=== PATIENT | female | born 1950 | race Caucasian/White ===

== ENCOUNTER 2025-04-14 00:37 | Inpatient (IN) | payer MEDICARE ==
[2025-04-14] VITALS (10 sets, daily range): BP systolic 126–164; BP diastolic 38–68; PULSE 78–81; RESP 18–22; TEMP 98.6–98.8; O2SAT 94–99
[~2025-04-14] VITALS: Ht 160 cm; Wt 123.0 kg
[2025-04-14] MEDS ORDERED: LANTUS SUBCUT (00:52)
[2025-04-14] MEDS ORDERED: INSU100C10 SQ (00:52)
[2025-04-14 02:58] LABS: MEAN PLATELET VOLUME 10.4 FL (7.4-10.4); RED CELL DISTRIBUTION WIDTH 15.1 % (11.5-14.5)
[2025-04-14 03:13] LABS: CREATININE 1.98 MG/DL (0.40-0.90); PRO BRAIN NATRIURETIC PEPTIDE 17144 PG/ML (0-125); TOTAL CARBON DIOXIDE 20.6 MMOL/L (24-32); eCRCL 21 ML/MIN; eGFR 25 ML/MIN
--- NOTE | 2025-04-14 04:31 | Physician Documentation ---
History of Present Illness ~ Chief Complaint: Chest Pain Stated Complaint: XFER Time Seen by MD: 03:26 OK to notify your PCP?: Yes Source: patient, RN/MD, EMS, RN notes reviewed, EMS notes reviewed, old records Mode of Arrival: EMS Exam Limitations: no limitations HPI This pleasant 74-year-old female was seen at a local hospital [facility]. The patient has been complaining of shortness of breath for about 3-4 days. Generally not feeling well. Patient did develop some chest pain as well including a raspy voice. Patient was concerned about possible bladder infection. Patient denies any sick contacts no fevers or chills. Just generalized weakness. She does have a history of asthma and COPD. She also has some chronic venous stasis and peripheral edema has not been taking her Lasix. Patient had a workup at the local hospital she was found to be chest pain-free but for her shortness of breath CT angiogram was obtained and was negative for pulmonary embolism. However during the workup the patient was found to have a BNP of 1300 her troponin was 0.17 which was elevated. Patient was given aspirin Lasix Zofran and also Rocephin. Patient reports that she has not been taking Lasix because it causes leg cramps. Patient was started on a heparin drip. And given aspirin and transferred to our facility. Past medical history diabetes type 2 cholecystitis edema peripheral, insulin dependent diabetes, hypertension, rectal bleeding, BMI 40+ severe obesity, retinopathy, proteinuria, UTIs, pulmonary artery pressure increased, COPD, anxiety, Past surgical history cholecystectomy varicose vein stripping, lap band surgery, laparoscopic adjustment gastric banding, removal of gallbladder. Social history denies tobacco alcohol or recreational drugs. Medication Reconciliation Allergies: Uncoded Allergies: ERYTHROMYCIN (Allergy, Intermediate, 04/14/25) Scheduled Insulin Glargine,Hum.rec.anlog* (Lantus*), 10 UNITS SUBCUT HS, (Reported) Miscellaneous Medications Insulin Lispro (Humalog), 1 UNITS SQ, (Reported) Review of Systems All Other Systems at this time: Reviewed and Negative Physical Exam Vital Signs: RN Vital Signs have been reviewed: Yes, Temperature: 98.0, Source: Oral, Heart Rate: 73, Respiratory Rate: 18, BP: 145/56, Pulse Oximetry: 99, Weight: 123.000 Oxygen Flow Rate: 2.0 Physical Exam General: The patient is well developed, well nourished, nontoxic appearing and is in mild acute distress. Short of breath Skin: Asher, warm and dry with no rashes. HEENT: Head was normocephalic and atraumatic. Eyes - pupils equal, round, reactive to light and accommodation. Extraocular movements were intact. Conjunctivae were nonicteric. Ears - bilateral tympanic membranes were normal. The mouth and oropharynx were clear with moist mucous membranes. There were no pharyngeal exudates or erythema. Neck: Supple and nontender. There was no jugular venous distention, lymphadenopathy, thyromegaly or masses. Chest: Clear to auscultation bilaterally without wheezes, rales or rhonchi. No accessory muscle use. No dullness to percussion. Rapid respiratory rate shortened shallow three word sentences Heart: Rate regular and rhythmic. S1, S2. No murmurs. Palpation of the chest wall was normal. Abdomen: Soft, nontender and nondistended. Positive bowel sounds. No guarding or rebound. Extremities: No cyanosis, clubbing 2+ pitting edema. Chronic venous stasis changes thick skin. The patient moves all extremities. Pulses were equal and symmetric. Neurologic: Motor sensory grossly intact. Psychologic: The patient was oriented to person, place and time. The patient d emonstrated appropriate judgement and insight. Progress Results/Orders Reviewed/noted all lab results: Yes Results/Orders Orders - ALEC FIGUEROA MD Monitor (04/14/25 00:45) Saline Lock (04/14/25 00:45) Oxygen (04/14/25 00:45) Electrocardiogram (04/14/25 00:45) Hs Troponin I W Calculations (04/14/25 03:45) Vital Signs 04/14/25 04/14/25 04/14/25 04/14/25 00:38 00:47 01:46 02:00 Temp 98.0 98.0 98.0 Pulse 74 74 75 Resp 22 16 18 B/P (MAP) 159/72 151/54 (86) 171/57 (95) Pulse Ox 98 97 99 99 O2 Delivery Nasal Cannula* O2 Flow Rate 2.0 2 0 2.0 FiO2 28 28 04/14/25 03:41 Temp 98.0 Pulse 73 Resp 18 B/P (MAP) 145/56 (85) Pulse Ox 99 O2 Flow Rate 2.0 FiO2 28 Laboratory Tests Test 04/14/25 01:30 04/14/25 02:15 CBC Comment Chemistry Comments White Blood Count 13.7 H Red Blood Count 3.19 L Hemoglobin 9.8 L Hematocrit 28.9 L Mean Corpuscular Volume 90.6 Mean Corpuscular Hemoglobin 30.7 Mean Corpuscular Hemoglobin Concent 33.9 Red Cell Distribution Width 15.1 H Platelet Count 110 L Mean Platelet Volume 10.4 Neutrophils (%) (Auto) 81.1 H Lymphocytes (%) (Auto) 10.7 L Monocytes (%) (Auto) 8.1 Eosinophils (%) (Auto) 0 Basophils (%) (Auto) 0.1 Neutrophils # (Auto) 11.1 H Lymphocytes # (Auto) 1.5 Monocytes # (Auto) 1.1 H Eosinophils # (Auto) 0.0 Basophils # (Auto) 0.0 Sodium Level 138 Potassium Level 3.5 Chloride Level 105 Carbon Dioxide Level 20.6 L Anion Gap 12 Blood Urea Nitrogen 58 H Creatinine 1.98 H Estimated GFR/1.73 m2 25 BUN/Creatinine Ratio 29.3 H Glucose Level 214 H Calcium Level 8.4 L Troponin I High Sensitivity 166 *H Pro-B-Type Natriuretic Peptide 64261 H Albumin 2.3 L Re-Evaluation Re-Evaluation : Re-Evaluation: Improved Progress Patient apparently did not receive heparin and was transferred without any anticoagulation. Patient's chest x-ray showed some borderline cardiomegaly no significant fluid overload. But there was prominence of the central interstitium. CT angiogram was negative for pulmonary embolism no aortic dissection. Patient's laboratory work was redrawn. Patient's laboratory work initially showed a troponin of 0.17 the 2nd troponin was reported as equivocal. Patient did receive the Lasix 40 mg. The patient's initial white count was 14.1 slight anemia of 10 and 31 115 platelets and 79.1 neutrophils. Patient did receive Rocephin for possible UTI. I do not see any urinalysis. As far as the patient's chemistry the patient has some prerenal dehydration possible chronic renal insufficiency with a BUN of 54 creatinine of 1.7 CO2 has a bit low at 16. Upon arrival patient was placed in bed three. Patient has received Lovenox for anticoagulation. Patient's laboratory work shows an elevated WBC of 13.7 hemoglobin 9 hematocrit 28 with 110 platelets left shift of 81 PMNs. Patient's troponin is 166. Patient's kidney functions are a bit worse however we are also diuresing the patient in may give additional Lasix with the BUN is 58 and the creatinine is 1[place] [address]. Echocardiogram has been ordered. Patient was then admitted to the hospitalist service for further workup and care. EKG/XRAY/CT/US/VASC/MRI EKG : Intepreting Monitor?: Yes Additional Comment 42 minutes after midnight. EKG shows good R-wave progression normal axis normal intervals nonspecific ST changes in the inferior leads two three AVF. QTC 409 Heart Score: Heart Score Response (Comments) Value History Moderate Suspicious 1 EKG Repolarization Disturb 1 Age >65 2 Risk Factors 1 or 2 risk factors 1 Troponin 1-2 x's Normal limit 1 Total 6 Medical Decision Making Additional info obtained from: old records Differential Dx:Considerations: Include: angina, aortic dissection, chest wall pain, cholelithiasis, CHF, costochondritis, esophageal reflux/spasm, gastritis, herpes zoster, myocardial infarction, pericarditis, pleuritis, pancreatitis, pneumonia, pneumothorax, pulmonary embolus, other Departure Admitted to Inpatient Unit: yes, to hospitalist Admission Level of Care: PCU with Tele Impression: Primary Impression: Non-ST elevation CO (NSTEMI) Additional Impressions: UTI (urinary tract infection) Qualified Codes: N30.00 - Acute cystitis without hematuria Acute on chronic heart failure Qualified Codes: I50.43 - Acute on chronic combined systolic (congestive) and diastolic (congestive) heart failure Dyspnea Qualified Codes: R06.09 - Other forms of dyspnea Condition: Guarded Referrals: NO PRIMARY CARE PROVIDER (PCP) Education Educated: Patient Educated regarding: diagnosis, need for follow up Critical Care Note Total Time (mins): 30 Critical Care Note The very real possibility of a deterioration of this patient's condition required the highest level of my preparedness for sudden, emergent intervention. I provided critical care services, which included medication orders, frequent reevaluations of the patient's condition and response to treatment, ordering and reviewing test results, and discussing the case with various consultants. Exc ludes time spent performing separately billable procedures. The critical care time associated with the care of the patient was. 30 minutes Signature Scribe Signature: None Attestation: The note accurately reflects work and decisions made by me.Alec Figueroa MD 04/14/25 04:55 ALEC FIGUEROA MD Apr 14, 2025 04:31
[2025-04-14] MEDS: enoxaparin 100mg/ml syringe SUBCUT ONE (04:58)
--- NOTE | 2025-04-14 05:29 | ELECTROCARDIOGRAPH REPORT ---
[facility] Test Date: 2025-04-14 Test Time: 00:42:35 Pat Name: ANNE-MARIE ADAME Department: EMERGENCY ROOM Room: ED 3 1 Gender: F Gate Keeper: : 1950 Requested By: ALEC FIGUEROA Order Number: [id number] Reading MD: Dr. Alec Figueroa Measurements Intervals [place] Rate: 78 P: 48 ND: 148 QRS: 69 QRSD: 90 T: -25 QT: 359 QTc: 409 Interpretive Statements Sinus rhythm Borderline repolarization abnormality Electronically Signed On 04-14-2025 5:36:[address] Alec Figueroa Please click the below link to view image of tracing.
--- NOTE | 2025-04-14 05:31 | RADIOLOGY REPORT ---
CHEST RADIOGRAPH Indication: CHEST PAIN Technique: Single frontal view of the chest was obtained COMPARISON: None FINDINGS: Lines and Tubes: None Lungs: Congestion. Pleura: No effusion. No pneumothorax. Cardiomediastinal contours: Unremarkable Bones: Unremarkable IMPRESSION: Increased interstital prominence. This may represent pulmonary vascular congestion and/or viral pneumonia. Clinical correlation advised.
[2025-04-14] MEDS ORDERED: potassium Cl 40MEQ/1/2NS 520ml 520 ML IV PRN (06:05)
[2025-04-14] MEDS ORDERED: morphine 4 MG/ML inj SYRINge IV PRN ×2 (06:05)
[2025-04-14] MEDS ORDERED: potassium Cl 20 mEq SR tablet PO PRN (06:05)
[2025-04-14] MEDS ORDERED: magnesium Cl slow-release 64mg tablet PO PRN (06:05)
[2025-04-14] MEDS ORDERED: docusate sod 100mg capsule PO PRN (06:05)
[2025-04-14] MEDS ORDERED: mag hydrox/Alum hydrox/simeth 30ml oral suspension PO PRN (06:05)
[2025-04-14] MEDS ORDERED: magnesium sulf-water 4G/100mL 100 ML IV PRN (06:05)
[2025-04-14] MEDS ORDERED: magnesium sulf-water 2g/50mL 50 ML IV PRN (06:05)
[2025-04-14] MEDS ORDERED: magnesium hydroxide 30ml (MOM) UD suspension PO PRN (06:05)
[2025-04-14] MEDS ORDERED: DEXTROSE 15 GM of carb/4 tabs (each vial/BOTTLE has 4 tablets) PO PRN ×2 (06:10)
[2025-04-14] MEDS ORDERED: glucagon, human recombinant 1mg kit SUBCUT PRN (06:10)
[2025-04-14] MEDS ORDERED: dextrose 50%-water 50ml dispensing syringe IV PRN ×2 (06:10)
--- NOTE | 2025-04-14 06:15 | HISTORY AND PHYSICAL-Residence ---
History & Physical Providers to CC Resident Creating Document: CARMELITA YA NILS ~ History of Present Illness Reason for Admit\Complaint: NSTEMI History of Present Illness A 74 years old female who was transferred from [facility] for four days' duration of progressive shortness of breaths, central chest pressure, nausea and vomiting found to have elevated troponin with a past medical history of chronic bilateral lymphedema legs, T2 DM on insulin, class four obesity BMI 48, HTN, s/p cholecystectomy, s/p laparoscopic gastric band ligation for obesity, and s/p varicose vein stripping surgery. She stated that she has been having symptoms that she never had before describing for a progressive acute shortness of breaths only on exertion. She does not have to use any oxygen at home, denies any association for coughing out of the blood and peripheral chest pain although she has a sedentary lifestyle because of her chronic bilateral severe lymphedema legs. She denies any prodromal flu-like symptoms except for the whitish sputum productive cough and unusually wheezing over the last four days. She denies any orthopnea PND and progressive bilateral swelling legs in addition of her chronic lymphedema. She also noticed there was something sitting over her central chest which was not radiating to her back neck and in her arms while she was getting out of the bed, off and on on exertion, and which were associated with the nausea and vomiting. In [facility], she was only given for ASA for elevated Trop and EKG changes which showed inferior leads ST depression and T inversions, and did not start any heparin for some reason on her way to here. In ER, pt was given therapeutic dosage of subcutaneous Lovenox 100 mg in ER one time dose. Allergies: Uncoded Allergies: ERYTHROMYCIN (Allergy, Intermediate, 04/14/25) Home Medications Home Medications Active Reported Humalog (Insulin Lispro) 100 Unit/Ml Cartridge 1 Units SQ Lantus* (Insulin Glargine) 100 Unit/1 Ml Vial 10 Units SUBCUT HS 30 Days Past Medical History Past Medical History chronic bilateral lymphedema legs, T2 DM on insulin, class four obesity BMI 48, HTN Allergic history: Patient stated that she has nausea vomiting terribly GI upset from azithromycin, she got the laryngeal spasm from any Manish inhibitors, and muscle cramping from the Lasix. Past Surgical History Surgical History Comment s/p cholecystectomy, s/p laparoscopic gastric band ligation for obesity, and s/p varicose vein stripping surgery. Past Social History Social History Comment She is currently living with the spouse at the [facility]. She stopped smoking and drinking alcohol since 1994 and denies using illicit drugs. He used a cane for the ambulation purposes. ROS All Other Systems: Reviewed and Negative ROS Constitutional: No fever, chills, dizziness, weakness, weight gain or loss Eyes: No pain, erythema, discharge, blurring of vision ENT: No sore throat, epistaxis, tinnitus Cardiovascular: No palpitations, syncope, lower extremity edema, paroxysmal nocturnal dyspnea Respiratory: No hemoptysis Gastrointestinal: Normal appetite. No nausea, vomiting, diarrhea, constipation, hematemesis, abdominal pain, bloating, melena or fresh blood Genitourinary: No frequency, urgency, nocturia, hematuria or dysuria Musculoskeletal: No arthralgias or myalgias Integumentary: No change in skin, hair, nails. No swelling, bruising, abrasions Neurologic: No headache, neck pain, numbness or tingling of the extremities, weakness Psychiatric: No delusions, depression, loss of interest in normal activity or change in sleep pattern, hallucinations, suicidal ideations Endocrine: No fatigue, weakness, polydipsia, polyuria, change in appetite, heat or cold intolerance, sweating, dry skin Hematological: No bleeding, petechiae, bruising Allergies: No asthma or urticaria Exam Vitals: Vital Signs Date Time Temp Pulse Resp B/P (MAP) Pulse Ox O2 Delivery O2 Flow Rate FiO2 04/14/25 05:32 98.0 69 18 141/48 (79) 100 2.0 28 04/14/25 00:47 Nasal Cannula* General: General: Well alert, well oriented, not confused, not agitated, not in acute distress, well cooperated during the physical. HEENT: HEENT: Conjunctive are pink, sclerae clear, no icterus, pupil is equal in both sides, reactive to light, no ear discharge, no pharyngeal erythema or an edema, mouth and lips are moist. Neck: Neck: Supple, no JVD, no lymphadenopathy and thyromegaly. Chest: Lungs:Equal air entry on both lungs, bilateral basal crackles Cardiovascular: Heart: S1-S2 regular sinus rhythm and, regular rate, no gallops, no rubs, no murmurs Abdomen: Abdomen: No visible peristalsis, Bowel sounds present on auscultation, soft, nontender, no guarding, no rigidity Extremities: Extremities: No obvious deformities, 2+ pitting edema bilaterally, capillary refill intact, able to wiggle toes both sides, peripheral pulsations are intact on both sides. and some degress of redness and warm to touch bilaterally Central Nervous System: [employer]CEAN EXPORT COORDINATOR: No focal neurological deficits, no motor and sensory weakness in all 4 extremities, could move all 4 extremities Musculoskeletal: Musculoskeletal: No joint swelling, deformities, inflammations, and no scoliosis and back tenderness Skin: Skin: No active skin lesions and rashes Diagnostic Data Last Recorded Lab Results: 04/14/2521404/14/25214 Advance Care Planning Advanced Care plannin - 30 Minutes Additional Plan A 74 years old female who was transferred from [facility] for four days' duration of progressive shortness of breaths, central chest pressure, nausea and vomiting found to have elevated troponin with a past medical history of chronic bilateral lymphedema legs, T2 DM on insulin, class four obesity BMI 48, HTN, s/p cholecystectomy, s/p laparoscopic gastric band ligation for obesity, and s/p varicose vein stripping surgery. # NSTEMI # acute hypoxic respiratory failure possibly from NSTEMI vs CHF exacerbation # Acute on chronic CHF exacerbation with [place] EF -Given history of typical central chest pressure with serially elevated troponin showed 166-[address] depression and T changes at inferior leads on EKG, patient was admitted for non-STEMI to rule out ACS. -chest x-ray showed Increased interstital prominence. This may represent pulmonary vascular congestion and/or viral pneumonia. Clinical correlation advised. Along with severely elevated troponin [id number] although the patient is class four obese. -patient was given one time dose of therapeutic Lovenox injection subcutaneous in ER Plan: -continue SQ Lovenox 1 milligram/kg q.12h -cardiology consultation and possible NM Lexiscan was recommended -continue p.o. aspirin 81 mg daily -postpone beta luis until Lexiscan was done -continue p.o. hydralazine 20 mg t.i.d. and isosorbide dinitrate 20 mg t.i.d. in the setting of severe allergic reaction to Manish inhibitors -continue IV Lasix 40 mg b.i.d. with the continuous monitoring for calcium potassium and magnesium to prevent unnecessary muscle cramps # Non specific neutrophilic leukocytosis # normochromic normocytic anemia # chronic bilateral leg lymphedema with superimposed Possible BIlateral leg cellulitis # Possible Asymptomatic UTI -in the setting of possible LUTI without having any symptoms and presence of possible bilateral cellulitis legs on the top of chronic bilateral leg lymphedema -patient was recently discharged from the hospital for bilateral leg cellulitis treated with antibiotics Plan: Continue IV vancomycin and Zosyn-renal adjusted dosage -blood culture and sensitivity with a lactic sepsis monitoring -to downgrade the antibiotics according to antibiogram -ordered FOBT # T2 DM # class four obesity, BMI 48 # s/p laparoscopic gastric band surgery # high blood pressure # Possible MADIHA on CKD 4 # apparent hypocalcemia-corrected calcium show 9.8 WNL -since she has laparoscopic Gastric band surgery, she should not be on any GLP-1 inhibitor -her usual HGB A1c was around 6.5 and RBS were around 100s, but trending up on the recent bilateral leg cellulitis -pending HGB A1c, lipid panel and a TSH -started hypo hyperglycemic protocol with SC glargine 25 units, lispro 6 units and low-dose sliding scale -NPO for now for the possible stress test in the morning, will need to educate for diabetic diet 75 g carbs control -pending urine lytes, and UA CODE STATUS: Full code DVT prophylaxis: SQ Lovenox Analgesia/sedation: IV morphine as needed Lines/tubes: PIV GI prophylaxis: Protonix Nutrition: NPO for now, plan for 75 g carb controlled diet Prognosis: Guarded Disposition: Continue medical management, possible cardiology consultation and NM Lexiscan, diabetes control and continue IV antibiotics, PT eval and DC plan. Resident MD attestation: Patient was seen, examined and discussed with attending MD, Dr. Beka YA MD Internal Medicine Resident, PGY3 [facility] Attending Physician Attestation Evaluation via HIPAA compliant A/V device. I discussed the case with the resident and I agree with the resident's documentation. 74-year-old woman with a history of diabetes mellitus 2, BMI > 48, chronic lymphedema and recent admission for bilateral lower extremity cellulitis now admitted with chest pain and dyspnea. Elevated troponin and EKG changes are suggestive of NSTEMI. The treatment plan includes aspirin, statin and therapeutic LMWH for ACS as well as vancomycin and piperacillin-tazobactam antimicrobial therapy for possible lower extremity cellulitis. Time spent 50 minutes. Date of Service: Apr 14, 2025 Billing Provider: CHANCE GARCIA MD,TIN, RES Apr 14, 2025 06:15 CHANCE GARCIA MD Apr 14, 2025 07:38
[2025-04-14] MEDS: INSULIN LISPRO 100 UNIT/ML INSULN.PEN MULTI-DOSE SQ SCH ×2 (07:00→09:00)
[2025-04-14 07:02] LABS: PHOSPHORUS 3.7 MG/DL (2.3-4.5)
[2025-04-14] MEDS: pantoprazole 40mg Tablet.DR PO SCH (07:30)
[2025-04-14] MEDS: K and/or MAG REPLACEMENT MC SCH (07:42)
[2025-04-14] MEDS ORDERED: CefTRIAXone/D5W-Rocephin 1gm 50 ML IV SCH (08:00)
[2025-04-14] MEDS ORDERED: [UNRECOGNIZED DRUG - CODE] PO (08:43)
[2025-04-14] MEDS ORDERED: [UNRECOGNIZED DRUG - SUPPLY] PO (08:43)
[2025-04-14] MEDS ORDERED: BACILLUS COAGULANS PO (08:43)
[2025-04-14] MEDS ORDERED: [UNRECOGNIZED DRUG - OTHER] PO (08:43)
[2025-04-14] MEDS: vancomycin/NS 1 GM ADD-VANTAGE 250 ML X 1 DOSE IV SCH (08:51)
[2025-04-14] MEDS ORDERED: SUPPORT PO (08:52)
[2025-04-14] MEDS ORDERED: FISH1CAP15 PO (08:52)
[2025-04-14] MEDS ORDERED: [UNRECOGNIZED DRUG - OTHER] PO (08:52)
[2025-04-14] MEDS ORDERED: VITA-321 PO (08:52)
[2025-04-14] MEDS ORDERED: [UNRECOGNIZED DRUG - OTHER] PO (09:00)
[2025-04-14] MEDS ORDERED: [UNRECOGNIZED DRUG - OTHER] PO (09:00)
[2025-04-14] MEDS ORDERED: [UNRECOGNIZED DRUG - OTHER] PO (09:00)
[2025-04-14] MEDS: ondansetron/PF 4mg/2ml inj IV PRN (09:46)
[2025-04-14] MEDS: piperacillin/tazo 3.375gm/50ml 50 ML IV SCH (10:04)
[2025-04-14] MEDS: aspirin 81mg, enteric-coated 1 TAB TABLET.DR PO SCH (10:25)
[2025-04-14] MEDS ORDERED: metoprolol tartrate 1mg/ml inj IV PRN (10:30)
[2025-04-14] MEDS ORDERED: aminophylline 250mg/10ml inj. IV PRN (10:30)
[2025-04-14 10:55] LABS: LEUKOCYTE ESTERASE ,URINE TRACE (Neg); NITRITES, URINE NEGATIVE (Neg); OCCULT BLOOD,URINE MODERATE (Neg)
[2025-04-14 11:02] LABS: UA COLLECTION TYPE NON-SPECIFIED
[2025-04-14 11:06] LABS: OSMOLALITY UA 477 MOSM/K (50-1400)
[2025-04-14 11:07] LABS: COARSE GRANULAR CAST 0-3 /LPF (NEGATIVE); SQUAMOUS EPITHELIAL CELL,UR FEW /LPF (FEW)
[2025-04-14 11:15] LABS: CREATININE,URINE RANDOM 123.0 MG/DL
[2025-04-14] MEDS ORDERED: [UNRECOGNIZED DRUG - OTHER] PO (11:18)
[2025-04-14] MEDS ORDERED: [UNRECOGNIZED DRUG - OTHER] PO (11:18)
[2025-04-14] MEDS: regadenoson 0.4mg/5ml syringe IV PRN (15:25)
--- NOTE | 2025-04-14 16:32 | RADIOLOGY REPORT ---
Reason for study/Clinical History: Reversible ischemia Comparison Study: None Myocardial Perfusion Study with SPECT Technique: The patient received an intravenous injection of 7 mCi of technetium-99m Sestamibi while at rest. After a short delay, SPECT tomographic images of the heart were obtained. The patient then went to the stress lab where they received an intravenous Lexiscan utilizing standard protocol. 30 mCi of technetium-99m Sestamibi was injected intravenously immediately after the start of the infusion. Gated SPECT tomographic images of the heart were acquired and processed. Findings: Rotating planar images show no significant attenuation artifact. The left ventricular size is within normal limits. Stress tomographic images demonstrate normal perfusion. Resting tomographic images demonstrate a similar pattern. Gated portion of the study shows normal wall motion and myocardial thickening. The left ventricular ejection fraction is 54 %. (normal greater than 50%) Impression: Normal left ventricular size, wall motion, and function, without evidence of infarction or of myocardium at ischemic risk. The left ventricular ejection fraction is 54 %.
--- NOTE | 2025-04-14 17:02 | CONSULTATION REPORT ---
History of Present Illness Providers to CC CC: DANIELLE SUAZO MD ~ Reason for Admit\Admit Dx: Cardiology consultation History of Present Illness Patient has past medical history significant for lymphedema, type 2 diabetes, obesity status post gastric band procedure, diabetic retinopathy. She presents for increased shortness for breath, chest pressure and nausea and vomiting. Symptoms onset was . She complains of orthopnea, dyspnea on exertion. Complaining of lower back pain. She states intermittent dizziness and her vision going brown intermittently. This is worse with movement. Reports recent illness with cellulitis treated at [facility]. Recent urinary tract infection as well. Allergies: Uncoded Allergies: ERYTHROMYCIN (Allergy, Intermediate, 04/14/25) Home Medications Home Medications Active Reported [nerve sync] 1 Cap PO DAILY [lipomax] 1-2 Drop PO DAILY [[place] Nerve] 3 Cap PO DAILY [gut drops] 1 Ml PO DAILY [activator plus] 1 Tab PO DAILY [glp-1 support] 1 Cap PO DAILY K2 Plus D3 Tablet (Vitamin D3/Vitamin K2 (Mk4)) 1,000 Unit-100 Mcg Tablet 2 Tab PO DAILY Fish Oil 1,200 Mg Fish Oil (Fish Oil/Dha/Epa) 1,200 Mg-144 Mg-216 Mg Capsule 1 Each PO DAILY [padmini burn with mct] 1 Cap PO DAILY [Durable BP] 1 Cap PO DAILY [bacillus coagulans 3] 1 Capsule PO DAILY [place] Bergamot (Bergamot Extract) 500 Mg Capsule 1 Cap PO DAILY Humalog (Insulin Lispro) 100 Unit/Ml Cartridge 1 Units SQ Lantus* (Insulin Glargine) 100 Unit/1 Ml Vial 10 Units SUBCUT HS 30 Days Past Medical History Medical History Comment Lymphedema Diabetes Obesity White coat hypertension Varicose veins treated by Dr. Bell Diabetic retinopathy Past Surgical History Surgical History Comment Gastric sleeve Cholecystectomy Varicose vein stripping Past Social History Social History Comment Denies alcohol, smoking, recreational drugs. Very sedentary in her daily life. States difficulty moving around secondary to her lymphedema. Physical Exam Last Vital Signs Recorded: RN Vital Signs have been reviewed: Yes, Temperature: 98.0, Source: Oral, Heart Rate: 80, Respiratory Rate: 18, BP: 131/46, Pulse Oximetry: 99, Weight: 123.000 Physical Exam General: Awake, alert, oriented. No apparent distress Respiratory: Lungs are clear and diminished to auscultation bilaterally. No respiratory distress. Chest: Normal shape and size. No accessory muscle use. Cardiovascular: Regular rate and rhythm. S1-S2. No murmur, gallop, rub. Extremities: ++ edema. Neurologic: Alert and oriented x4. Nonfocal Psychiatric: Normal mood and affect. Skin: Normal color. Warm and dry. Review of Systems ROS Review of systems negative except documented in HPI. Results Diagram Lab Result Diagram: 04/14/2521404/14/25214 Assessment/Plan Additional Plan Patient presents secondary to shortness for breath. The following is her problem list: NSTEMI. High sensitivity troponins 166, 176, 158. Stress test without reversible ischemia. --recommend risk factor modification. --recommend echocardiogram Congestive heart failure, likely diagnosis TTE pending. --continue with careful diuresis and monitoring of kidney function. Acute kidney injury versus chronic kidney disease --recommend monitoring closely Type 2 diabetes Hemoglobin A1c 7.2 --management per hospitalist Obesity with BMI 48 Recommend further evaluation with echocardiogram as stated above. Case discussed with Dr. Francisco Suazo who is in agreement with this plan. Supervising MD Supervising Physician: AJAY Simmons NP Apr 14, 2025 17:02
[2025-04-14] MEDS: enoxaparin 100mg/ml syringe SUBCUT SCH (20:08)
[2025-04-14] MEDS: insulin glargine (Lantus) pen - multi-dose SQ SCH (21:43)
[2025-04-15] VITALS (12 sets, daily range): BP systolic 132–156; BP diastolic 49–65; PULSE 75–81; RESP 14–25; TEMP 97.9–99.2; O2SAT 94–99
[2025-04-15 06:40] LABS: MEAN PLATELET VOLUME 9.9 FL (7.4-10.4); RED CELL DISTRIBUTION WIDTH 15.1 % (11.5-14.5)
[2025-04-15 06:49] LABS: CHOL/HDL RATIO 6.3 (0.00-4.99); CREATININE 2.53 MG/DL (0.40-0.90); LDL CHOLESTEROL 41 MG/DL (50-100); TOTAL CARBON DIOXIDE 22.3 MMOL/L (24-32); eCRCL 16 ML/MIN; eGFR 19 ML/MIN
[2025-04-15 09:19] LABS: BANDS% (MANUAL) 2.0 % (0-10); EOSINOPHILS % (MANUAL) 1.0 % (0-6); LYMPHOCYTES % (MANUAL) 13.0 % (21-51); MONOCYTES % (MANUAL) 9.0 % (2-12); NEUTROPHILS % (MANUAL) 75.0 % (42-75); PLATELET ESTIMATE DECREASED
[2025-04-15] MEDS: potassium Cl 20 mEq SR tablet PO PRN (09:24)
[2025-04-15] MEDS: ringers solution, lacted 1,000 ML IV SCH (11:21)
[2025-04-15] MEDS: ringers solution, lactated 500ml IV solution IV ONE ×2 (11:22→12:22)
--- NOTE | 2025-04-15 11:58 | PROGRESS NOTE ---
Progress Note Cardiology Providers to CC ~ Subjective Subjective Patient has continued shortness for breath. Able to lay flat. All questions answered. Objective Result Diagram: 04/15/2560904/15/25609 Objective General: Awake, alert, oriented. No apparent distress Respiratory: Lungs are clear and diminished to auscultation bilaterally. No respiratory distress. Chest: Normal shape and size. No accessory muscle use. Cardiovascular: Regular rate and rhythm. S1-S2. No murmur, gallop, rub. Extremities: ++ edema. Neurologic: Alert and oriented x4. Nonfocal Psychiatric: Normal mood and affect. Skin: Normal color. Warm and dry. Problem\Assessment\Plan Additional Plan Patient presents secondary to shortness for breath. The following is her problem list: NSTEMI. High sensitivity troponins 166, 176, 158. Stress test without reversible ischemia. --recommend risk factor modification. --recommend echocardiogram Congestive heart failure, likely diagnosis TTE pending. Apparently had a echocardiogram in [place] for a wellness on March 25 that showed a preserved LVEF, moderate MR/TR. --continue with careful diuresis and monitoring of kidney function. Acute kidney injury versus chronic kidney disease --recommend monitoring closely Type 2 diabetes Hemoglobin A1c 7.2 --management per hospitalist Obesity with BMI 48 Hypokalemia --recommend replacement per protocol Case discussed with Dr. Francisco Suazo who is in agreement with this plan. Supervising Physician: AJAY Simmons NP Apr 15, 2025 11:58
--- NOTE | 2025-04-15 12:00 | CONSULTATION REPORT - RESIDENT ---
Consult Providers to CC Resident Creating Document: BASSAM ENG RES History of Present Illness Reason for Admit\Complaint: MADIHA History of Present Illness This is a 74-year-old female with a history of type 2 diabetes mellitus, BMI 48.0, s/p gastric band ligation, bilateral lymphedema, history of MRSA cellulitis in the right leg, initially presented for progressive shortness of breadth and chest pressure for four days. She is on 2 L of oxygen with nasal cannula, does not use oxygen at baseline. She presented with elevated troponins with a possible NSTEMI, was started on therapeutic dose of Lovenox, cardiac stress test was done which was negative. For acute hypoxemic respiratory failure likely secondary to CHF exacerbation, patient was started on IV Lasix 40 b.i.d.. And for UTI and possible leg cellulitis, was initiated on vanc and Zosyn. Patient has been consulted for MADIHA, creatinine 1.98 at the time of admission, today it is 2.53. Patient's labs reviewed from 01/31 which showed a normal creatinine of 1.01 and a GFR of 55. Received three doses of 40 mg IV Lasix. She does not use diuretics at home. Denies using any NSAIDs. Patient appears very dry, chest x-ray shows findings of possible pneumonia. Creatinine today is 2.53, BUN 60, BUN/creatinine 23.7, urine sodium<15, feNa- 0.2% (urine collected while the patient is on Lasix.) Lasix has been discontinued, 500 mL bolus of LR was given and started on LR@ 100 mL/hour. Patient is also on vanc and Zosyn for leg cellulitis. Patient denies any history of chronic kidney disease. Does not follow up with any collection administrator. Allergies: Uncoded Allergies: ERYTHROMYCIN (Allergy, Intermediate, 04/14/25) Home Medications Home Medications Active Reported [nerve sync] 1 Cap PO DAILY [lipomax] 1-2 Drop PO DAILY [[place] Nerve] 3 Cap PO DAILY [gut drops] 1 Ml PO DAILY [activator plus] 1 Tab PO DAILY [glp-1 support] 1 Cap PO DAILY K2 Plus D3 Tablet (Vitamin D3/Vitamin K2 (Mk4)) 1,000 Unit-100 Mcg Tablet 2 Tab PO DAILY Fish Oil 1,200 Mg Fish Oil (Fish Oil/Dha/Epa) 1,200 Mg-144 Mg-216 Mg Capsule 1 Each PO DAILY [padmini burn with mct] 1 Cap PO DAILY [Durable BP] 1 Cap PO DAILY [bacillus coagulans 3] 1 Capsule PO DAILY [place] Bergamot (Bergamot Extract) 500 Mg Capsule 1 Cap PO DAILY Humalog (Insulin Lispro) 100 Unit/Ml Cartridge 1 Units SQ Lantus* (Insulin Glargine) 100 Unit/1 Ml Vial 10 Units SUBCUT HS 30 Days Past Medical History Past Medical History chronic bilateral lymphedema legs, T2 DM on insulin, class four obesity BMI 48, HTN History of MRSA cellulitis in the right leg. Past Surgical History Surgical History Comment s/p cholecystectomy, s/p laparoscopic gastric band ligation for obesity, and s/p varicose vein stripping surgery in 2021 Family History Family History: FH: cancer FH: multiple sclerosis Past Social History Social History Comment She is currently living with the spouse at the [facility]. She stopped smoking and drinking alcohol since 1994 and denies using illicit drugs. He used a cane for the ambulation purposes. Sedentary lifestyle. Exam Vitals: Vital Signs Date Time Temp Pulse Resp B/P (MAP) Pulse Ox O2 Delivery O2 Flow Rate FiO2 04/15/25 09:22 79 04/15/25 02:00 98.7 18 134/64 (87) 98 Nasal Cannula 2.0 04/14/25 20:00 28 General: General: Awake and Alert, no acute distress. HEENT: Conjunctiva pink, Sclera clear, Mucus Membranes dry Neck: Supple without masses and tenderness. Chest and Resp: Bilateral lung sounds appear to be clear. Did not access the back of her lungs. Cardiovascular system: Regular Rate and rhythm, normal S1 and S2 without murmur, rub or gallop. Abdomen: Soft, mild diffuse tenderness no organomegaly Extremities: Bilateral lymphedema. Right lower extremity appears to be warmer and slightly erythematous when compared to the left WAREHOUSE PULLER: Oriented x4. No motor or sensory deficits. Tone normal. Skin: Warm and Dry. Diagnostic Data Last Recorded Lab Results: 04/15/2560904/15/25609 Additional Plan Assessment This is a 74-year-old female with a history of type 2 diabetes mellitus, BMI 48.0, s/p gastric band ligation, bilateral lymphedema, history of MRSA cellulitis in the right leg, initially presented for progressive shortness of breadth and chest pressure for four days. She is on 2 L of oxygen with nasal cannula, does not use oxygen at baseline. She presented with elevated troponins with a possible NSTEMI, was started on therapeutic dose of Lovenox, cardiac stress test was done which was negative. For acute hypoxemic respiratory failure likely secondary to CHF exacerbation, patient was started on IV Lasix 40 b.i.d.. And for UTI and possible leg cellulitis, was initiated on vanc and Zosyn. Patient has been consulted for MADIHA, creatinine 1.98 at the time of admission, today it is 2.53. Patient's labs reviewed from 01/31 which showed a normal creatinine of 1.01 and a GFR of 55. Received three doses of 40 mg IV Lasix. She does not use diuretics at home. Denies using any NSAIDs. Patient appears very dry, chest x-ray shows findings of possible pneumonia. Creatinine today is 2.53, BUN 60, BUN/creatinine 23.7, urine sodium<15, feNa- 0.2% (urine collected while the patient is on Lasix.) Lasix has been discontinued, 500 mL bolus of LR was given and started on LR@ 100 mL/hour. Patient is also on vanc and Zosyn for leg cellulitis. Plan MADIHA likely prerenal MADIHA likely secondary to dehydration, diuretics, nephrotoxin medications creatinine 1.98 at the time of admission, today it is 2.53. Patient's labs reviewed from 01/31 which showed a normal creatinine of 1.01 and a GFR of 55. BUN/creatinine 23.7,urine sodium<15, feNa-0.2%, urine collected while the patient is on Lasix. Expecting FENA to be even lower. Patient was also nephrotoxin medications, vanc and Zosyn. Total urine output 550 mL. Patient has a history of diabetic retinopathy, so possibly has a diabetic nephropathy too. Plan 500 LR bolus followed by LR @ 100 mL/hour Encouraged oral fluid intake Was on vanc and zosyn, antibiotics changd to ceft and azithro Avoid nephrotoxin medications, avoid [place], morphine, also avoid JOSUE inhibitors Follow up with daily urine electrolytes Strict I&Os Renal diet Outpatient follow up with Dr. White. Electrolytes Hypokalemia Potassium 3.2 likely secondary to Lasix use. Do not replace potassium as the patient has a MADIHA. UTI Urine analysis positive for infection Pending urine cultures Possible lower extremity cellulitis History of MRSA cellulitis in the right leg Possible pneumonia Was on vanc and zosyn, antibiotics changd to ceft and azithro NSTEMI Cardiac stress test negative On aspirin Patient received therapeutic dose of Lovenox which was discontinued Acute on chronic CHF exacerbation Echo [place] ProB[place] 12270 Lasix discontinued. Anemia Hemoglobin 8.9 Recent iron studies on 01/01 showed iron 103, TIBC 303, % saturation 34, ferritin 53 Type 2 diabetes mellitus A1c 7.2 On Lantus 25 units, insulin protocol Class four obesity, BMI 48 History of gastric band ligation Hypertension Blood pressure in the normal range Bassam Eng M.D PGY2 Nephrology Resident. Date of Service: Apr 15, 2025 Billing Provider: MARK WHITE III, PRAVAHIKA, RES Apr 15, 2025 12:00
[2025-04-15] MEDS ORDERED: albuterol 2.5 MG/3 ML nebule NEB PRN (13:35)
[2025-04-15] MEDS: ipratropium/albuterol 3ml nebule NEB SCH (14:25)
[2025-04-15] MEDS: CefTRIAXone/D5W-Rocephin 1gm 50 ML IV ONE (15:21)
--- NOTE | 2025-04-15 15:53 | RADIOLOGY REPORT ---
CLINICAL INFORMATION: Shortness of breath. TECHNIQUE: Axial CT imaging of the chest was performed without IV contrast. Sagittal and coronal reformatted images were made, stored and reviewed. Evaluation is limited without IV contrast. One or more of the following dose reduction techniques were used: Automated exposure control. Adjustment of mA and/or kV according to patient size. CTDIvol = 18.82 mGy DLP = 666.61 mGy-cm COMPARISON: None FINDINGS: Aorta: No aneurysm. Moderate atherosclerotic calcification. Prominent fluid in the superior aortic pericardial recess adjacent to the ascending aorta. Cardiac: Heart size is within normal limits. Dense coronary artery calcification and/or stents. Mediastinum/chapin: No mass or adenopathy. Lungs: Scattered areas of subsegmental atelectasis. No focal consolidation. No pneumothorax or pleural effusion. Mild interlobular septal thickening, may be seen with interstitial pulmonary edema in the appropriate clinical setting. Pulmonary arteries: Dilated main pulmonary artery measuring up to 3.5 cm, may be seen with pulmonary arterial hypertension in the appropriate clinical setting. Chest wall: No mass or other abnormality. Upper abdomen: Hepatic steatosis. Gastric band in place. No definite evidence for slippage of the gastric band. Small hiatal hernia. Bones: No fracture or suspicious intraosseous lesions. IMPRESSION: 1. No focal consolidation, pneumothorax, or pleural effusion. 2. Mild areas of interlobular septal thickening, may be seen with interstitial pulmonary edema in the appropriate clinical setting. 3. Dilated main pulmonary artery, may be seen with pulmonary arterial hypertension. 4. Additional findings as described above.
[2025-04-15] MEDS: azithromycin/NS 500mg/250ml 250 ML IV ONE (16:27)
--- NOTE | 2025-04-15 17:40 | PROGRESS NOTE- Residence ---
Progress Note - Resident Providers to CC Resident Creating Document: JESSIE WOODSON RES CC: LARRY WEINSTEIN MD ~ Antibiotic Timeout Antibiotic Ordered?: Yes Subjective Patient was seen and examined at bedside with her by her side. We spent 30 minutes explaining the patient about her stress test, her diagnosis and our current treatment plan for the patient. Patient stated that she continues to have mild fatigue and shortness of breath Objective Vital Signs Date Time Temp Pulse Resp B/P (MAP) Pulse Ox O2 Delivery O2 Flow Rate FiO2 04/15/25 16:27 80 04/15/25 14:31 16 Nasal Cannula 3.0 04/15/25 14:26 97 32 04/15/25 02:00 98.7 134/64 (87) Result Diagram: 04/15/25 0610 04/15/25 0610 General: Awake, oriented to person, place and time HEENT: Conjunctive are pink, sclerae clear, no icterus, pupil is equal in both sides, reactive to light, no ear discharge, no pharyngeal erythema or an edema. Neck: Supple, no JVD, no lymphadenopathy and thyromegaly. Chest: Equal air entry on both lungs, decreased breath sounds noted on bilateral basilar lungs. Cardiovascular: S1-S2 regular sinus rhythm and, regular rate, no gallops, no rubs, no murmurs Abdomen: No visible peristalsis, Bowel sounds present on auscultation, soft, no tenderness, no guarding, no rigidity Extremities: Bilateral lymphedema plus one chronic bilateral pitting edema, mild erythematous right lower extremity compared to left capillary refill intact, peripheral pulsations are intact on both sides Central Nervous System: No focal neurological deficits, no motor or sensory weakness in all 4 extremities, could move all 4 extremities, 2+ deep tendon reflexes, negative Babinski. Musculoskeletal: No joint swelling, deformities, inflammations, and no scoliosis and back tenderness Skin: Warm and dry. Dry oral mucosa. Advance Care Planning Advanced Care plannin - 30 Minutes Plan Plan NSTEMI type 2 Acute hypoxic respiratory failure possibly from NSTEMI vs CHF exacerbation versus possible pneumonia(possibly community-acquired Gram-negative and Gram- positive pneumonia) Acute on chronic CHF exacerbation with preserved ejection fraction of 70-75% Pulmonary hypertension Patient presented with history of chest pressure, no chest pain , orthopnea or PND Elevated troponins of 160 to [address] with [address] segment depression and T changes on EKG Severely elevated probnp [id number] and three troponins downtrended 166,176,158 patient is also obese with a BMI of 48 kg/m2 Investigation Officer team was consulted and patient underwent Lexiscan without reversible ischemia Cardiology recommended medical management at this point Echocardiogram reported EF of 70-75%; RVSP is estimated at [address] chest reported:Mild areas of interlobular septal thickening, may be seen with interstitial pulmonary edema in the appropriate clinical setting. Dilated main pulmonary artery, may be seen with pulmonary arterial hypertension. On physical examination: Patient continues to have shortness of breath, no wheezing or crackles were heard Plan: Continue aspirin 81 mg Continue nitro sublingual 0.4 mg p.r.n. Continue lactated ringer at 100 mL/hour as patient does appear dry Discontinued Lasix in view of patient's worsening kidney function We recommended steroids with the patient, however patient and her declined Initiated the patient on albuterol 2.5 mg q.2h p.r.n., DuoNebs q.4h scheduled Possible sepsis 2/2 Urinary tract infection Pneumonia(possible community-acquired pneumonia-positive Gram-negative) Possible bilateral lower extremity cellulitis History of MRSA cellulitis in the right leg Patient's leukocyte elevated at 14, procalcitonin elevated at 0.9 Patient's urinalysis was positive for leukocyte esterase and WBC Patient was initially on vancomycin and Zosyn, changed patient's antibiotics to ceftriaxone azithromycin in view of her worsening kidney function MADIHA likely prerenal possibly due to vasomotor nephropathy MADIHA likely secondary to dehydration, diuretics, nephrotoxin medications Creatinine 1.98 at the time of admission, today it is 2.53. Patient's labs reviewed from 01/31 which showed a normal creatinine of 1.01 and a GFR of 55. BUN/creatinine 23.7,urine sodium<15, feNa-0.2%, urine collected while the patient is on Lasix. Expecting FENA to be even lower. Patient was also nephrotoxic medications, vanc and Zosyn. Total urine output 550 mL. Patient has a history of diabetic retinopathy, so possibly has a diabetic nephropathy too. Nephrology team was consulted and recommended Plan 500 LR bolus followed by LR @ 100 mL/hour Encouraged oral fluid intake Closely monitor patient's creatinine Follow up with daily urine electrolytes Strict I&Os Normocytic normochromic anemia likely cause anemia of chronic disease Hemoglobin 8.9 Iron 103, TIBC 303, % saturation 34, ferritin 53 Initiated the patient on centrum multivitamin Type 2 diabetes mellitus A1c 7.2 On Lantus 25 units, insulin protocol Class four obesity, BMI 48 History of gastric band ligation Code Status: Full code DVT Prophylaxis: Lovenox Lines/Tubes: PIV Gi Prophylaxis: None Nutrition: Renal diet PT:yes Prognosis: Guarded Disposition: We will continue to monitor the patient. Nephrology team is on board. Jessie Woodson MD Internal medicine resident,PGY-1 Date of Service: Apr 15, 2025 Billing Provider: LARRY WEINSTEIN MD Common Visit Codes: 11932-[id number] INP/OBS CARE(HIGH) JESSIE WOODSON, RES Apr 15, 2025 17:40 LARRY WEINSTEIN MD Apr 20, 2025 16:34
--- NOTE | 2025-04-15 18:37 | CARDIOLOGY REPORT ---
APPROVED REPORT EXAM: Limited 2D, Doppler, and color-flow Echocardiogram. Patient Location: [address] Blood Pressure: 134/64 mmHg Heart Rate: 78 bpm Rhythm: SINUS Indications ABNORMAL EKG ELEVATED PROBNP (89173) HS TROPONIN 166, 176 SHORTNESS OF BREATH CHEST PAIN Scaffold Erector: Junito Suazo MD Previous echo: 03/25/25 [facility] (EF 65-70%, mild MR, mild LAE, trace AI, mild to mod TR, PHTN, no significant PE) 2D Dimensions IVSd 1.3 (0.7-1.1cm) LVDd 4.5 cm PWd 0.9 (0.7-1.1cm) IVSs 1.9 (0.8-1.2cm) LVDs 2.4 (2.5-4.0cm) PWs 1.5 (0.8-1.2cm) LVEF(%) 78.0 (>50%) FS (%) 46.5 % SV 73.0 ml CO 5.8 L/min Mitral Valve MV Peak Gr. 13 mmHg MV Mean Gr. 5 mmHg MV PHT 48 ms MVA (PHT) 4.58 cm2 MV VMax 179.4 cm/s MV VMean 102.9 cm/s MV VTI 51.9 cm Tricuspid Valve TR P. Velocity 405 cm/s RAP ESTIMATE 15 mmHg TR Peak Gr. 66 mmHg RVSP 81 mmHg LEFT VENTRICLE Normal LV size and hyperdynamic function. Mild concentric hypertrophy. LVEF is 70-75%. RIGHT VENTRICLE RV appears mildly dilated with grossly normal function. RVSP is estimated at 81 mmHg. ATRIA LA appears at least moderately dilated. AORTIC VALVE Trileaflet AV appears grossly normal without stenosis. Trivial insufficiency. MITRAL VALVE Moderate posterior MV annulus calcification without significant stenosis. Mild regurgitation. TRICUSPID VALVE TV appears grossly normal with moderate regurgitation. PULMONIC VALVE PV appears grossly normal with mild to moderate insufficiency. PERICARDIUM Normal pericardium. No significant effusion. Left pleural effusion is present. Other Information Study Quality: Adequate Conclusion Normal LV size and hyperdynamic function. Mild concentric hypertrophy. LVEF is 70-75%. RV appears mildly dilated with grossly normal function. RVSP is estimated at 81 mmHg. LA appears at least moderately dilated. Trileaflet AV appears grossly normal without stenosis. Trivial insufficiency. Moderate posterior MV annulus calcification without significant stenosis. Mild regurgitation. TV appears grossly normal with moderate regurgitation. PV appears grossly normal with mild to moderate insufficiency. Normal pericardium. No significant effusion. Left pleural effusion is present.
[2025-04-15 22:37] LABS: CREATININE,URINE RANDOM 76.0 MG/DL; UA UREA RANDOM 729.0 MG/DL
[2025-04-15] MEDS: furosemide 10 MG/1 ML 10ml inj IV ONE (22:45)
[2025-04-16] VITALS (17 sets, daily range): BP systolic 146–172; BP diastolic 56–77; PULSE 72–94; RESP 16–25; TEMP 97.3–98.4; O2SAT 96–99
[2025-04-16 07:16] LABS: MEAN PLATELET VOLUME 9.6 FL (7.4-10.4); RED CELL DISTRIBUTION WIDTH 15.4 % (11.5-14.5)
[2025-04-16 07:38] LABS: CREATININE 2.47 MG/DL (0.40-0.90); TOTAL CARBON DIOXIDE 22.8 MMOL/L (24-32); eCRCL 17 ML/MIN; eGFR 19 ML/MIN
[2025-04-16] MEDS: CefTRIAXone/D5W-Rocephin 1gm 50 ML IV SCH (08:00)
[2025-04-16] MEDS: MULTIVIT-MIN/FERROUS GLUCONATE 9 MG/15 ML LIQUID PO SCH (08:01)
[2025-04-16] MEDS: enoxaparin 60mg/0.6ml syringe SUBCUT SCH (08:02)
[2025-04-16] MEDS: azithromycin/NS 500mg/250ml 250 ML IV SCH (08:44)
--- NOTE | 2025-04-16 12:25 | RADIOLOGY REPORT ---
NUCLEAR MEDICINE VENTILATION/PERFUSION LUNG SCAN. INDICATION: Rule out PE/SOB; 74-year-old female with shortness of breath, elevated D-dimer. COMPARISON: Chest x-ray dated 04/14/2025; CT scan of the chest dated 04/15/2025 TECHNIQUE: Following intravenous demonstration of 5.3 millicuries of technetium 99m MAA, and inhalation of 40.9 mCi of Tc 99m DTPA scintigrams were obtained in multiple projections of the lungs. FINDINGS: There is normal perfusion and ventilation throughout both lungs. Perfusion is greater than ventilation throughout both lungs. No mismatched perfusion defects are identified. The heart is enlarged, better appreciated on prior CT scan. IMPRESSION: 1. Very low probability for PE. 2. Cardiomegaly.
--- NOTE | 2025-04-16 14:06 | DISCHARGE SUMMARY-Residence ---
Discharge Summary Providers to CC ~ Discharge Summary Admission Diagnosis: CP TO RULE OUT [facility] Hospital Course DATE OF ADMISSION: 04/14/25 DATE OF DISCHARGE: Discharge Diagnosis\Comment: NSTEMI type 2 Acute hypoxic respiratory failure possibly from NSTEMI vs CHF exacerbation versus possible pneumonia(possibly community-acquired Gram-negative and Gram- positive pneumonia) Acute on chronic CHF exacerbation with preserved ejection fraction of 70-75% Pulmonary hypertension Possible sepsis 2/2 Urinary tract infection Pneumonia(possible community-acquired pneumonia-positive Gram-negative) Possible bilateral lower extremity cellulitis History of MRSA cellulitis in the right leg MADIHA likely prerenal possibly due to vasomotor nephropathy Normocytic normochromic anemia likely cause anemia of chronic disease Type 2 diabetes mellitus Class four obesity, BMI 48 History of gastric band ligation Operations\Procedures: None Consultants: Forder Operator- Dr. White Freight Associate -Dr. Francisco Suazo Complications: None Discharge Summary: HPI as per admitting physician: A 74 years old female who was transferred from [facility] for four days' duration of progressive shortness of breaths, central chest pressure, nausea and vomiting found to have elevated troponin with a past medical history of chronic bilateral lymphedema legs, T2 DM on insulin, class four obesity BMI 48, HTN, s/p cholecystectomy, s/p laparoscopic gastric band ligation for obesity, and s/p varicose vein stripping surgery. She stated that she has been having symptoms that she never had before describing for a progressive acute shortness of breaths only on exertion. She does not have to use any oxygen at home, denies any association for coughing out of the blood and peripheral chest pain although she has a sedentary lifestyle because of her chronic bilateral severe lymphedema legs. She denies any prodromal flu-like symptoms except for the whitish sputum productive cough and unusually wheezing over the last four days. She denies any orthopnea PND and progressive bilateral swelling legs in addition of her chronic lymphedema. She also noticed there was something sitting over her central chest which was not radiating to her back neck and in her arms while she was getting out of the bed, off and on on exertion, and which were associated with the nausea and vomiting. In [facility], she was only given for ASA for elevated Trop and EKG changes which showed inferior leads ST depression and T inversions, and did not start any heparin for some reason on her way to here. In ER, pt was given therapeutic dosage of subcutaneous Lovenox 100 mg in ER one time dose. Hospital course: A 74 years old female who was transferred from [facility] for four days' duration of progressive shortness of breaths, central chest pressure, nausea and vomiting found to have elevated troponin with a past medical history of chronic bilateral lymphedema legs, T2 DM on insulin, class four obesity BMI 48, HTN, s/p cholecystectomy, s/p laparoscopic gastric band ligation for obesity, and s/p varicose vein stripping surgery. On admission patient troponins were elevated from 160 to 180s and serial troponins downtrended; [place] [address], EKG showed ST segment depression and T wave changes. Patient was diagnosed with NSTEMI type 2 and acute hypoxemic respiratory failure possibly from NSTEMI/pneumonia. Cardiology team was consulted and they recommended Lexiscan. Patient underwent Lexiscan which was negative and resulted in no reversible ischemia. Cardiology team recommended medical management at this point. With the patient on aspirin 81 mg and nitroglycerin 0.4 mg p.r.n. Patient's echocardiogram reported EF of 70- 75% with elevated RVSP of 81 mmHg indicating pulmonary hypertension which could also be possible cause of patient's shortness of breath. Patient underwent a CT which reported mild areas of interlobular septal thickening and dilated main pulmonary artery seen with pulmonary artery hypertension NSTEMI type 2 Acute hypoxic respiratory failure possibly from NSTEMI vs CHF exacerbation versus possible pneumonia(possibly community-acquired Gram-negative and Gram- positive pneumonia) Acute on chronic CHF exacerbation with preserved ejection fraction of 70-75% Pulmonary hypertension Echocardiogram reported EF of 70-75%; RVSP is estimated at [address] chest reported:Mild areas of interlobular septal thickening, may be seen with interstitial pulmonary edema in the appropriate clinical setting. Dilated main pulmonary artery, may be seen with pulmonary arterial hypertension. Continue lactated ringer at 100 mL/hour as patient does appear dry Discontinued Lasix in view of patient's worsening kidney function We recommended steroids with the patient, however patient and her declined Initiated the patient on albuterol 2.5 mg q.2h p.r.n., DuoNebs q.4h scheduled Possible sepsis 2/2 Urinary tract infection Pneumonia(possible community-acquired pneumonia-positive Gram-negative) Possible bilateral lower extremity cellulitis History of MRSA cellulitis in the right leg Patient's leukocyte elevated at 14, procalcitonin elevated at 0.9 Patient's urinalysis was positive for leukocyte esterase and WBC Patient was initially on vancomycin and Zosyn, changed patient's antibiotics to ceftriaxone azithromycin in view of her worsening kidney function MADIHA likely prerenal possibly due to vasomotor nephropathy MADIHA likely secondary to dehydration, diuretics, nephrotoxin medications Creatinine 1.98 at the time of admission, today it is 2.53. Patient's labs reviewed from 01/31 which showed a normal creatinine of 1.01 and a GFR of 55. BUN/creatinine 23.7,urine sodium<15, feNa-0.2%, urine collected while the patient is on Lasix. Expecting FENA to be even lower. Patient was also nephrotoxic medications, vanc and Zosyn. Total urine output 550 mL. Patient has a history of diabetic retinopathy, so possibly has a diabetic nephropathy too. Nephrology team was consulted and recommended Plan 500 LR bolus followed by LR @ 100 mL/hour Encouraged oral fluid intake Closely monitor patient's creatinine Follow up with daily urine electrolytes Strict I&Os Normocytic normochromic anemia likely cause anemia of chronic disease Hemoglobin 8.9 Iron 103, TIBC 303, % saturation 34, ferritin 53 Initiated the patient on centrum multivitamin Type 2 diabetes mellitus A1c 7.2 On Lantus 25 units, insulin protocol Class four obesity, BMI 48 History of gastric band ligation JESSIE WOODSON, RES Apr 16, 2025 14:06
[2025-04-16] MEDS: budesonide 0.5mg/2ml UD nebule IH SCH (18:40)
--- NOTE | 2025-04-16 18:59 | PROGRESS NOTE- Residence ---
Progress Note - Resident Providers to CC Resident Creating Document: ANY WOODSON RES CC: LARRY WEINSTEIN MD ~ Antibiotic Timeout Antibiotic Ordered?: Yes Subjective Patient was seen and examined at bedside with her by her side. Explained to the patient and her regarding her V/Q scan results; spent over 30 minutes explaining to the patient about why she needs to use the CPAP the importance of CPAP because patient possibly has a obstructive sleep apnea. Patient continued to refuse CPAP and also any steroids which could help her breathing. Objective Vital Signs Date Time Temp Pulse Resp B/P (MAP) Pulse Ox O2 Delivery O2 Flow Rate FiO2 04/16/25 16:14 75 04/16/25 15:36 18 Nasal Cannula 1.0 04/16/25 15:28 98 28 04/16/25 15:00 97.3 164/59 (94) Result Diagram: 04/16/2562004/16/25620 General: Awake, oriented to person, place and time HEENT: Conjunctive are pink, sclerae clear, no icterus, pupil is equal in both sides, reactive to light, no ear discharge, no pharyngeal erythema or an edema. Neck: Supple, no JVD, no lymphadenopathy and thyromegaly. Chest: Equal air entry on both lungs, decreased breath sounds noted on bilateral basilar lungs. Cardiovascular: S1-S2 regular sinus rhythm and, regular rate, no gallops, no rubs, no murmurs Abdomen: No visible peristalsis, Bowel sounds present on auscultation, soft, no tenderness, no guarding, no rigidity Extremities: Bilateral lymphedema plus one chronic bilateral pitting edema, mild erythematous right lower extremity compared to left capillary refill intact, peripheral pulsations are intact on both sides Central Nervous System: No focal neurological deficits, no motor or sensory weakness in all 4 extremities, could move all 4 extremities, 2+ deep tendon reflexes, negative Babinski. Musculoskeletal: No joint swelling, deformities, inflammations, and no scoliosis and back tenderness Skin: Warm and dry. Dry oral mucosa. Coagulation Studies Laboratory Tests Test 04/15/25 17:11 D-Dimer 2.22 MG/L FEU (0-0.50) H D-Dimer Comment Advance Care Planning Advanced Care plannin - 30 Minutes Plan Plan Type 2 NE Acute hypoxic respiratory failure likely 2/2 Possible community-acquired pneumia covering Gram-negative and Gram-positive pneumonia,atypical organisms Acute on chronic CHF exacerbation with preserved ejection fraction of 70-75% Severe pulmonary hypertension with RVSP of 81 mmHg Obesity-BMI of 48 kg/m2- Possible MORTEZA Lexiscan without reversible ischemia Cardiology recommended medical management at this point Echocardiogram reported EF of 70-75%; RVSP is estimated at [address] chest reported:Mild areas of interlobular septal thickening, may be seen with interstitial pulmonary edema in the appropriate clinical setting. Dilated main pulmonary artery D-dimer was elevated; V/Q scan was done today which was negative On physical examination: Patient continues to have shortness of breath, no wheezing or crackles were heard; patient complains of cough with no expectoration Plan: Continue aspirin 81 mg continue nitro sublingual 0.4 mg p.r.n. Initiated the patient on carvedilol 3.125 mg Discontinued Lasix in view of patient's worsening kidney function Discontinue fluids We recommended steroids with the patient, however patient and her declined Continue albuterol 2.5 mg q.2h p.r.n., DuoNebs q.4h scheduled Initiated the patient on budesonide nebulization Recommended patient CPAP/BiPAP, but patient strongly refuses it, ordered CPAP for tonight in the hope that patient might change her mind and try the CPAP once with respiratory team today Possible sepsis 2/2 Urinary tract infection Pneumonia(possible community-acquired pneumonia-positive Gram-negative and atypicals) Possible bilateral lower extremity cellulitis History of MRSA cellulitis in the right leg Patient's urinalysis was positive for leukocyte esterase and WBC Patient's leukocytosis continues to trend in the wrong direction Continue ceftriaxone and azithromycin MADIHA likely prerenal possibly due to vasomotor nephropathy Patient's creatinine continues to be stagnant at 2.53 which is above her baseline of 1 Patient is maintaining positive euvolemic output; we are not giving the patient Lasix as this point considering patient's creatinine Patient has a history of diabetic retinopathy, so possibly has a diabetic nephropathy too. Nephrology team was consulted and recommended Plan Discontinue fluids Discontinued hydralazine and Protonix in view of MADIHA Encouraged oral fluid intake Closely monitor patient's creatinine Follow up with daily urine electrolytes Strict I&Os Normocytic normochromic anemia likely cause anemia of chronic disease Hemoglobin 8.9 Iron 103, TIBC 303, % saturation 34, ferritin 53 Initiated the patient on centrum multivitamin Type 2 diabetes mellitus A1c 7.2 Patient's blood sugar was elevated today; continue to closely monitor On Lantus 25 units, insulin protocol Class four obesity, BMI 48 History of gastric band ligation Code Status: Full code DVT Prophylaxis: Lovenox Lines/Tubes: PIV Gi Prophylaxis: None Nutrition: Renal diet PT:yes Prognosis: Guarded Disposition: We will continue to monitor the patient. Patient would likely need rehab Any Woodson MD Internal medicine resident,PGY-1 Date of Service: Apr 16, 2025 Billing Provider: LARRY WEINSTEIN MD Common Visit Codes: 59129-[id number] INP/OBS CARE(HIGH) ANY WOODSON, RES Apr 16, 2025 18:59 LARRY WEINSTEIN MD Apr 20, 2025 16:35
[2025-04-16 20:05] LABS: ABG BASE EXCESS -2.3 mmol/L (-2.0-3.0); ABG HCO3 21.3 mmol/L (21.0-28.0); ABG OXYGEN SATURATION 97.7 % (94.0-98.0); ABG PCO2 (T) 31.6 mmHg (32.0-45.0); ABG PH (T) 7.444 (7.350-7.450); ABG PO2 (T) 96.4 mmHg (83.0-108.0); ALLEN'S TEST Modified; FCOHb 0.9 % (0.5-1.5); FHHb 2.3 % (0.0-5.0); FIO2 28.0 mmHg/%; FLOW 2 L/min; FMetHb 0.3 % (0.0-1.5); FO2Hb 96.5 % (94.0-98.0); MODE NASAL CANNULA; PATIENT TEMPERATURE 36.3; TOTAL HEMOGLOBIN 10.0 G/dl (12.0-16.0)
--- NOTE | 2025-04-16 20:10 | PROGRESS NOTE- Residence ---
Progress Note - Resident Providers to CC Resident Creating Document: BASSAM ENG RES ~ Antibiotic Timeout Antibiotic Ordered?: Yes Subjective Patient is seen and examined at bedside today. History of the patient was started on IV fluids for MADIHA secondary to dehydration. Last night patient developed pulmonary congestion and shortness of breadth, IV fluids were discontinued and was given Lasix 60 mg once. Objective Vital Signs Date Time Temp Pulse Resp B/P (MAP) Pulse Ox O2 Delivery O2 Flow Rate FiO2 04/16/25 19:55 74 18 96 Nasal Cannula* 2 28 04/16/25 17:00 150/56 (87) 04/16/25 15:00 97.3 Result Diagram: 04/16/2562004/16/25620 General: Awake, oriented to person, place and time HEENT: Conjunctive are pink, sclerae clear, no icterus, pupil is equal in both sides, reactive to light, no ear discharge, no pharyngeal erythema or an edema. Neck: Supple, no JVD, no lymphadenopathy and thyromegaly. Chest: Equal air entry on both lungs, decreased breath sounds noted on bilateral basilar lungs. Cardiovascular: S1-S2 regular sinus rhythm and, regular rate, no gallops, no rubs, no murmurs Abdomen: No visible peristalsis, Bowel sounds present on auscultation, soft, no tenderness, no guarding, no rigidity Extremities: Bilateral lymphedema plus one chronic bilateral pitting edema, mild erythematous right lower extremity compared to left capillary refill intact, peripheral pulsations are intact on both sides Central Nervous System: No focal neurological deficits, no motor or sensory weakness in all 4 extremities, could move all 4 extremities, 2+ deep tendon reflexes, negative Babinski. Musculoskeletal: No joint swelling, deformities, inflammations, and no scoliosis and back tenderness Skin: Warm and dry. Dry oral mucosa. Coagulation Studies Laboratory Tests Test 04/15/25 17:11 D-Dimer 2.22 MG/L FEU (0-0.50) H D-Dimer Comment Plan Plan Assessment This is a 74-year-old female with a history of type 2 diabetes mellitus, BMI 48.0, s/p gastric band ligation, bilateral lymphedema, history of MRSA cellulitis in the right leg, initially presented for progressive shortness of breadth and chest pressure for four days. She is on 2 L of oxygen with nasal cannula, does not use oxygen at baseline. She presented with elevated troponins with a possible NSTEMI, was started on therapeutic dose of Lovenox, cardiac stress test was done which was negative. For acute hypoxemic respiratory failure likely secondary to CHF exacerbation, patient was started on IV Lasix 40 b.i.d.. And for UTI and possible leg cellulitis, was initiated on vanc and Zosyn. Patient has been consulted for MADIHA, creatinine 1.98 at the time of admission, today it is 2.53. Patient's labs reviewed from 01/31 which showed a normal creatinine of 1.01 and a GFR of 55. Received three doses of 40 mg IV Lasix. She does not use diuretics at home. Denies using any NSAIDs. Patient appears very dry, chest x-ray shows findings of possible pneumonia. Creatinine today is 2.53, BUN 60, BUN/creatinine 23.7, urine sodium<15, feNa- 0.2% (urine collected while the patient is on Lasix.) Lasix has been discontinued, 500 mL bolus of LR was given and started on LR@ 100 mL/hour. Patient is also on vanc and Zosyn for leg cellulitis. Plan MADIHA likely prerenal MADIHA likely secondary to dehydration, diuretics, nephrotoxin medications creatinine 1.98 at the time of admission, today it is 2.47 Patient's labs reviewed from 01/31 which showed a normal creatinine of 1.01 and a GFR of 55. BUN/creatinine 23.7,urine sodium 30, feNa-0.7%, Urine output 0.61 mL/kg per hour, total urine output 1800 mL Patient has a history of diabetic retinopathy, so possibly has a diabetic nephropathy too. Plan Fluids discontinued because of pulmonary congestion. Was on vanc and zosyn, antibiotics changd to ceft and azithro Avoid nephrotoxin medications, avoid Julian, morphine, also avoid JOSUE inhibitors Follow up with daily urine electrolytes Strict I&Os Renal diet Outpatient follow up with Dr. White. Electrolytes Hypokalemia-improved Potassium in the normal range. UTI Urine analysis positive for infection Pending urine cultures Possible lower extremity cellulitis History of MRSA cellulitis in the right leg Possible pneumonia Was on vanc and zosyn, antibiotics changd to ceft and azithro Breathing treatment. NSTEMI Troponinemia Cardiac stress test negative On aspirin Patient received therapeutic dose of Lovenox which was discontinued V/Q scan negative for PE Acute on chronic CHF exacerbation Right heart strain with tricuspid and pulmonic valve regurgitation Echo showed ejection fraction of 70-75%, RVSP 81 mmHg, moderate tricuspid valve, pulmonic valve regurgitation ProBNP elevated [id number] Anemia Hemoglobin 9.0 Recent iron studies on 01/01 showed iron 103, TIBC 303, % saturation 34, ferritin 53 Type 2 diabetes mellitus A1c 7.2 On Lantus 25 units, insulin protocol Class four obesity, BMI 48 History of gastric band ligation Hypertension Blood pressure in the normal range Bassam Eng M.D PGY2 Nephrology Resident. Date of Service: Apr 16, 2025 Billing Provider: MARK WHITE III, PRAVAHIKA, RES Apr 16, 2025 20:10
[2025-04-16] MEDS: guaiFENesin 200 MG/10 ML oral syrup UD cup PO PRN (20:27)
[2025-04-16] MEDS: INSULIN LISPRO 100 UNIT/ML INSULN.PEN MULTI-DOSE SQ SCH (20:38)
[2025-04-17] VITALS (7 sets, daily range): BP systolic 151–153; BP diastolic 69; PULSE 62–76; RESP 17–20; TEMP 98; O2SAT 70–99
[2025-04-17] MEDS: VANCOMYCIN LEVEL IV ONE (07:45)
[2025-04-17 08:51] LABS: CREATININE 1.89 MG/DL (0.40-0.90); TOTAL CARBON DIOXIDE 21.4 MMOL/L (24-32); eCRCL 22 ML/MIN; eGFR 26 ML/MIN
[2025-04-17 11:45] LABS: MEAN PLATELET VOLUME 9.6 FL (7.4-10.4); RED CELL DISTRIBUTION WIDTH 15.7 % (11.5-14.5)
--- NOTE | 2025-04-17 13:07 | DISCHARGE SUMMARY-Residence ---
Discharge Summary Providers to CC Resident Creating Document: JESSIE WOODSON, NILS CC: LARRY WEINSTEIN MD ~ Discharge Summary Admission Diagnosis: CP TO RULE OUT [facility] Hospital Course DATE OF ADMISSION: 04/14/25 DATE OF DISCHARGE: 04/17/25 Discharge Diagnosis\Comment: Type 2 TN Acute hypoxic respiratory failure likely 2/2 Possible community-acquired pneumia covering Gram-negative and Gram-positive pneumonia,atypical organisms Acute on chronic CHF exacerbation with preserved ejection fraction of 70-75% Severe pulmonary hypertension with RVSP of 81 mmHg Obesity-BMI of 48 kg/m2- Possible MORTEZA Possible sepsis 2/2 Urinary tract infection Pneumonia(possible community-acquired pneumonia-positive Gram-negative and atypicals) Possible bilateral lower extremity cellulitis History of MRSA cellulitis in the right leg MADIHA likely prerenal possibly due to vasomotor nephropathy Normocytic normochromic anemia likely cause anemia of chronic disease Type 2 diabetes mellitus Class four obesity, BMI 48 History of gastric band ligation Operations\Procedures: None Consultants: Director Of Student Financial Aid- Dr. White Plant Science Professor -Dr. Francisco Suazo Complications: None Condition on DC: Stable for transfer Discharge Summary: Discharge Summary: HPI as per admitting physician: A 74 years old female who was transferred from [facility] for four days' duration of progressive shortness of breaths, central chest pressure, nausea and vomiting found to have elevated troponin with a past medical history of chronic bilateral lymphedema legs, T2 DM on insulin, class four obesity BMI 48, HTN, s/p cholecystectomy, s/p laparoscopic gastric band ligation for obesity, and s/p varicose vein stripping surgery. She stated that she has been having symptoms that she never had before describing for a progressive acute shortness of breaths only on exertion. She does not have to use any oxygen at home, denies any association for coughing out of the blood and peripheral chest pain although she has a sedentary lifestyle because of her chronic bilateral severe lymphedema legs. She denies any pr odromal flu-like symptoms except for the whitish sputum productive cough and unusually wheezing over the last four days. She denies any orthopnea PND and progressive bilateral swelling legs in addition of her chronic lymphedema. She also noticed there was something sitting over her central chest which was not radiating to her back neck and in her arms while she was getting out of the bed, off and on on exertion, and which were associated with the nausea and vomiting. In [facility], she was only given for ASA for elevated Trop and EKG changes which showed inferior leads ST depression and T inversions, and did not start any heparin for some reason on her way to here. In ER, pt was given therapeutic dosage of subcutaneous Lovenox 100 mg in ER one time dose. Hospital course: A 74 years old female who was transferred from [facility] for four days' d uration of progressive shortness of breaths, central chest pressure, nausea and vomiting found to have elevated troponin with a past medical history of chronic bilateral lymphedema legs, T2 DM on insulin, class four obesity BMI 48, HTN. On admission,patient troponins were elevated from 160 to 180s and serial troponins downtrended; [place] [address], EKG showed ST segment depression and T wave changes. Patient was diagnosed with NSTEMI type 2 and acute hypoxemic respiratory failure possibly from NSTEMI/pneumonia. Cardiology team was consulted and they recommended Lexiscan. Patient underwent Lexiscan which was negative and resulted in no reversible ischemia. Cardiology team recommended medical management at this point. Initiated the patient on aspirin 81 mg and nitroglycerin 0.4 mg p.r.n. Patient's echocardiogram reported EF of 70- 75% with elevated RVSP of 81 mmHg indicating pulmonary hypertension which could also be possible cause of patient's shortness of breath. Patient underwent a CT which reported mild areas of interlobular septal thickening and dilated main pulmonary artery seen with pulmonary artery hypertension. Patient also possibly developed community-acquired pneumonia covering Gram-negative and Gram-positive and atypical organisms we initiated the patient on ceftriaxone azithromycin. With respect to patient's shortness of breath we did a D-dimer which was elevated and we did a V/Q scan post stat to rule out PE. V/Q scan was negative. Patient's blood pressure was elevated during the stay so we initiated the patient on carvedilol 3.125 mg and amlodipine 5 mg. We initiated the patient on albuterol and DuoNeb respiratory inhalers which helped her breathing, however patient still had continued shortness of breath so we initiated the patient on budesonide nebulization which helped her drastically. Patient developed MADIHA likely prerenal possibly due to vasomotor nephropathy. Patient's creatinine was slowly decreasing during the course of the stay. Patient's hemoglobin was low and was diagnosed with normocytic normochromic anemia likely due to anemia of chronic disease we initiated the patient on centrum multivitamin. Patient's A1c was elevated at 7.2 and we followed the hyperglycemia hypoglycemic protocol. Physical examination the time of discharge General: Awake, oriented to person, place and time HEENT: Conjunctive are pink, sclerae clear, no icterus, pupil is equal in both sides, reactive to light, no ear discharge, no pharyngeal erythema or an edema. Neck: Supple, no JVD, no lymphadenopathy and thyromegaly. Chest: Equal air entry on both lungs, decreased breath sounds noted on bilateral basilar lungs. Cardiovascular: S1-S2 regular sinus rhythm and, regular rate, no gallops, no rubs, no murmurs Abdomen: No visible peristalsis, Bowel sounds present on auscultation, soft, no tenderness, no guarding, no rigidity Extremities: Bilateral lymphedema plus one chronic bilateral pitting edema, mild erythematous right lower extremity compared to left capillary refill intact, peripheral pulsations are intact on both sides Central Nervous System: No focal neurological deficits, no motor or sensory weakness in all 4 extremities, could move all 4 extremities, 2+ deep tendon reflexes, negative Babinski. Musculoskeletal: No joint swelling, deformities, inflammations, and no scoliosis and back tenderness Skin: Warm and dry. Dry oral mucosa. Significant imaging Cardiac stress test: 04/14/2025 Normal left ventricular size, wall motion, and function, without evidence of infarction or of myocardium at ischemic risk. The left ventricular ejection fraction is 54 %. Echocardiogram 04/15/2025 Normal LV size and hyperdynamic function. Mild concentric hypertrophy. LVEF is 70-75%. RV appears mildly dilated with grossly normal function. RVSP is estimated at 81 mmHg. LA appears at least moderately dilated. Trileaflet AV appears grossly normal without stenosis. Trivial insufficiency. Moderate posterior MV annulus calcification without significant stenosis. Mild regurgitation. TV appears grossly normal with moderate regurgitation. PV appears grossly normal with mild to moderate insufficiency. Normal pericardium. No significant effusion. Left pleural effusion is present. Chest CT 04/15/2025 No focal consolidation, pneumothorax, or pleural effusion. Mild areas of interlobular septal thickening, may be seen with interstitial pulmonary edema in the appropriate clinical setting. Dilated main pulmonary artery, may be seen with pulmonary arterial hypertension. V/Q scan 04/16/2025 1. Very low probability for PE. 2. Cardiomegaly. Vital Signs Date Time Temp Pulse Resp B/P (MAP) Pulse Ox O2 Delivery O2 Flow Rate FiO2 04/17/25 15:18 72 18 Nasal Cannula 1.0 04/17/25 15:17 70 24 04/17/25 02:00 98.0 151/69 (96) Laboratory Tests Test 04/16/25 06:21 04/16/25 12:25 04/16/25 16:22 04/16/25 19:22 White Blood Count 15.5 X10'3 Red Blood Count 2.97 X10'6 Hemoglobin 9.0 g/dl Hematocrit 27.0 % Mean Corpuscular Volume 90.9 FL Mean Corpuscular Hemoglobin 30.4 PG Mean Corpuscular Hemoglobin Concent 33.4 g/dL Red Cell Distribution Width 15.4 % Platelet Count 134 X10'3 Mean Platelet Volume 9.6 FL Neutrophils (%) (Auto) 76.1 % Lymphocytes (%) (Auto) 13.0 % Monocytes (%) (Auto) 10.2 % Eosinophils (%) (Auto) 0.5 % Basophils (%) (Auto) 0.2 % Neutrophils # (Auto) 11.8 X10'3 Lymphocytes # (Auto) 2.0 X10'3 Monocytes # (Auto) 1.6 X10'3 Eosinophils # (Auto) 0.1 X10'3 Basophils # (Auto) 0.0 X10'3 CBC Comment Sodium Level 141 MMOL/L Potassium Level 3.7 MMOL/L Chloride Level 105 MMOL/L Carbon Dioxide Level 22.8 MMOL/L Anion Gap 13 Blood Urea Nitrogen 60 MG/DL Creatinine 2.47 MG/DL Estimated GFR/1.73 m2 19 ML/MIN BUN/Creatinine Ratio 24.3 Glucose Level 225 MG/DL Calcium Level 8.0 MG/DL Magnesium Level 2.0 MG/DL Total Bilirubin 0.7 MG/DL Aspartate Amino Transf (AST/SGOT) 11 U/L Alanine Aminotransferase (ALT/SGPT) 32 U/L Alkaline Phosphatase 122 IU/L Total Protein 6.1 G/DL Albumin 1.8 G/DL Globulin 4.3 G/DL Albumin/Globulin Ratio 0.4 Chemistry Comments Glucometer 330 mg/dl 244 mg/dl Lactic Acid Level 1.0 MMOL/L Procalcitonin 0.78 NG/ML Test 04/16/25 20:00 04/16/25 20:22 04/17/25 07:34 04/17/25 07:50 Blood Gas Specimen Type Arterial Blood Gas Puncture Site Rr O2 Saturation 97.7 % Arterial Blood pH (Temp corrected) 7.444 Arterial Blood pCO2 (Temp correct) 31.6 mmHg Arterial Blood pO2 (Temp corrected) 96.4 mmHg Arterial Blood PO2/FiO2 Ratio 3.59 mmHg/% Arterial Blood HCO3 21.3 mmol/L Arterial Blood Base Excess -2.3 mmol/L Arterial Blood Oxyhemoglobin 96.5 % Arterial Blood Carboxyhemoglobin 0.9 % Arterial Blood Methemoglobin 0.3 % Arterial Blood Deoxyhemoglobin 2.3 % Guido Test Modified Blood Gas Hemoglobin 10.0 G/dl Blood Gas Temperature 36.3 Blood Gas Liter Flow 2 L/min Blood Gas Modality Nasal cannula FiO2 28.0 mmHg/% Glucometer 193 mg/dl 125 mg/dl Sodium Level 137 MMOL/L Potassium Level 4.0 MMOL/L Chloride Level 106 MMOL/L Carbon Dioxide Level 21.4 MMOL/L Anion Gap 10 Blood Urea Nitrogen 47 MG/DL Creatinine 1.89 MG/DL Estimated GFR/1.73 m2 26 ML/MIN BUN/Creatinine Ratio 24.9 Glucose Level 138 MG/DL Calcium Level 7.9 MG/DL Total Bilirubin 0.7 MG/DL Aspartate Amino Transf (AST/SGOT) 19 U/L Alanine Aminotransferase (ALT/SGPT) 22 U/L Alkaline Phosphatase 131 IU/L Total Protein 6.4 G/DL Albumin 1.8 G/DL Globulin 4.6 G/DL Albumin/Globulin Ratio 0.4 Chemistry Comments Vancomycin Level Trough 8.2 ug/mL Test 04/17/25 10:17 04/17/25 12:05 White Blood Count 15.0 X10'3 Red Blood Count 2.97 X10'6 Hemoglobin 8.9 g/dl Hematocrit 27.4 % Mean Corpuscular Volume 92.3 FL Mean Corpuscular Hemoglobin 30.0 PG Mean Corpuscular Hemoglobin Concent 32.5 g/dL Red Cell Distribution Width 15.7 % Platelet Count 159 X10'3 Mean Platelet Volume 9.6 FL Neutrophils (%) (Auto) 70.3 % Lymphocytes (%) (Auto) 16.1 % Monocytes (%) (Auto) 11.3 % Eosinophils (%) (Auto) 1.9 % Basophils (%) (Auto) 0.4 % Neutrophils # (Auto) 10.6 X10'3 Lymphocytes # (Auto) 2.4 X10'3 Monocytes # (Auto) 1.7 X10'3 Eosinophils # (Auto) 0.3 X10'3 Basophils # (Auto) 0.1 X10'3 CBC Comment Glucometer 172 mg/dl Discharge instructions Please follow with your primary care doctor post discharge We recommend getting a sleep study because your pulmonary hypertension and a CPAP/BiPAP would help Please follow up with base br[facility] Dr. White Please complete your antibiotic course as prescribed Please note we have tried to treat her insulin dosage Please recheck your HbA1c during your next primary care visit and titrate accordingly Discharge medications T. cefdinir 300 mg p.o. b.i.d. five days Cap Culturelle 10,000 units b.i.d. for 30 days Aspirin 81 mg *Problems/Diagnosis: (1) UTI (urinary tract infection) Status: Acute (2) Dyspnea Status: Acute Total Time Spent on D/C: Up to 30 Minutes Date of Service: Apr 17, 2025 Billing Provider: LARRY WEINSTEIN MD Common Visit Codes: 69122-ZPX/OBS DISCH DAY >30min Problem Qualifiers (1) UTI (urinary tract infection): Urinary tract infection type: acute cystitis Hematuria presence: without h ematuria Qualified Codes: N30.00 - Acute cystitis without hematuria (2) Dyspnea: Dyspnea type: dyspnea on exertion Qualified Codes: R06.09 - Other forms of dyspnea JESSIE WOOSDON, NILS Apr 17, 2025 13:07 LARRY WEINSTEIN MD Apr 20, 2025 16:35
--- NOTE | 2025-04-17 19:37 | PROGRESS NOTE- Residence ---
Progress Note - Resident Providers to CC Resident Creating Document: ASHLEY KING RES ~ Antibiotic Timeout Antibiotic Ordered?: No Subjective Patient is seen and examined at bedside today. Patient is feeling comfortable. Her kidney function is improving. Patient has been discharged to intermediate facility. Objective Vital Signs Date Time Temp Pulse Resp B/P (MAP) Pulse Ox O2 Delivery O2 Flow Rate FiO2 04/17/25 15:18 72 18 Nasal Cannula 1.0 04/17/25 15:17 70 24 04/17/25 02:00 98.0 151/69 (96) Result Diagram: 04/17/25 1017 04/17/25 0750 General: Awake, oriented to person, place and time HEENT: Conjunctive are pink, sclerae clear, no icterus, pupil is equal in both sides, reactive to light, no ear discharge, no pharyngeal erythema or an edema. Neck: Supple, no JVD, no lymphadenopathy and thyromegaly. Chest: Equal air entry on both lungs, decreased breath sounds noted on bilateral basilar lungs. Cardiovascular: S1-S2 regular sinus rhythm and, regular rate, no gallops, no rubs, no murmurs Abdomen: No visible peristalsis, Bowel sounds present on auscultation, soft, no tenderness, no guarding, no rigidity Extremities: Bilateral lymphedema plus one chronic bilateral pitting edema, mild erythematous right lower extremity compared to left capillary refill intact, peripheral pulsations are intact on both sides Central Nervous System: No focal neurological deficits, no motor or sensory weakness in all 4 extremities, could move all 4 extremities, 2+ deep tendon reflexes, negative Babinski. Musculoskeletal: No joint swelling, deformities, inflammations, and no scoliosis and back tenderness Skin: Warm and dry. Dry oral mucosa. Coagulation Studies Laboratory Tests Test 04/15/25 17:11 D-Dimer 2.22 MG/L FEU (0-0.50) H D-Dimer Comment Assessment Assessment Pt about to be discharged. Needs neph f/u in our office. I'd recommend weekly cmp, cbc, PO4, then f/u in our office in 1 month. Plan Plan Assessment This is a 74-year-old female with a history of type 2 diabetes mellitus, BMI 48.0, s/p gastric band ligation, bilateral lymphedema, history of MRSA cellulitis in the right leg, initially presented for progressive shortness of breadth and chest pressure for four days. She is on 2 L of oxygen with nasal cannula, does not use oxygen at baseline. She presented with elevated troponins with a possible NSTEMI, was started on therapeutic dose of Lovenox, cardiac stress test was done which was negative. For acute hypoxemic respiratory failure likely secondary to CHF exacerbation, patient was started on IV Lasix 40 b.i.d.. And for UTI and possible leg cellulitis, was initiated on vanc and Zosyn. Patient has been consulted for MADIHA, creatinine 1.98 at the time of admission, today it is 2.53. Patient's labs reviewed from 01/31 which showed a normal creatinine of 1.01 and a GFR of 55. Received three doses of 40 mg IV Lasix. She does not use diuretics at home. Denies using any NSAIDs. Patient appears very dry, chest x-ray shows findings of possible pneumonia. Patient's kidney function has improved. Plan MADIHA likely prerenal MADIHA likely secondary to dehydration, diuretics, nephrotoxin medications Creatinine improved to 1.89. Patient's labs reviewed from 01/31 which showed a normal creatinine of 1.01 and a GFR of 55. BUN/creatinine 23.7,urine sodium 30, feNa-0.7%, Urine output 0.61 mL/kg per hour, total urine output 1800 mL Patient has a history of diabetic retinopathy, so possibly has a diabetic nephropathy too. Plan Fluids discontinued because of pulmonary congestion. Was on vanc and zosyn, antibiotics changd to ceft and azithro Avoid nephrotoxin medications, avoid Almo, morphine, also avoid JOSUE inhibitors Follow up with daily urine electrolytes Strict I&Os Renal diet recommended Outpatient follow up with Dr. White. Electrolytes Hypokalemia-improved Potassium in the normal range. UTI Urine analysis positive for infection Urine culture showed no growth. Possible lower extremity cellulitis History of MRSA cellulitis in the right leg Possible pneumonia Was on antibiotics ceftriaxone and azithromycin. NSTEMI Acute on chronic CHF exacerbation Right heart strain with tricuspid and pulmonic valve regurgitation Cardiac stress test negative V/Q scan negative for PE Echo showed ejection fraction of 70-75%, RVSP 81 mmHg, moderate tricuspid valve, pulmonic valve regurgitation [place] 68912 Anemia Hemoglobin 9.0 Recent iron studies on 01/01 showed iron 103, TIBC 303, % saturation 34, ferritin 53 Pravahika Albertina M.D PGY2 Nephrology Resident. Date of Service: Apr 17, 2025 Billing Provider: CARLOS ESPOSITO MD, PRAVAHIKA, RES Apr 17, 2025 19:37 CARLOS ESPOSITO MD Apr 17, 2025 20:08
== END 2025-04-17 16:14 | DRG 871 ==
LOC: ER 00:38 → ED HOLD 05:21 → PCU 3S 16:00
PROVIDERS: ADMIT Internal Medicine Critical Care Medicine; ATTEND Family Medicine
PROC: 4A02XM4 Measurement of Cardiac Total Activity, External Approach (ICD-10-PCS; principal; 2025-04-14)
PROC: 3E033HZ Introduction of Radioactive Substance into Peripheral Vein, Percutaneous Approach (ICD-10-PCS; 2025-04-14)
PROC: CB121ZZ Planar Nuclear Medicine Imaging of Lungs and Bronchi using Technetium 99m (Tc-99m) (ICD-10-PCS; 2025-04-16)
DX: A41.9 Sepsis, unspecified organism (principal); I21.A1 Myocardial infarction type 2; I50.43 Acute on chronic combined systolic (congestive) and diastolic (congestive) heart failure; J96.01 Acute respiratory failure with hypoxia; N17.0 Acute kidney failure with tubular necrosis; J15.9 Unspecified bacterial pneumonia; J15.69 Pneumonia due to other Gram-negative bacteria; N30.00 Acute cystitis without hematuria; Z68.42 Body mass index [BMI] 45.0-49.9, adult; L03.116 Cellulitis of left lower limb; L03.115 Cellulitis of right lower limb; F41.9 Anxiety disorder, unspecified; I11.0 Hypertensive heart disease with heart failure; E66.89 Other obesity not elsewhere classified; E83.51 Hypocalcemia; D63.8 Anemia in other chronic diseases classified elsewhere; E11.319 Type 2 diabetes mellitus with unspecified diabetic retinopathy without macular edema; Z90.49 Acquired absence of other specified parts of digestive tract; Z79.4 Long term (current) use of insulin; Z88.1 Allergy status to other antibiotic agents
CPT/HCPCS: 36415; 36600; 71045; 71250; 78452; 78582; 80048; 80053; 80061; 80202; 81001; 82570; 82803; 82948; 83036; 83605; 83735; 83880; 83930; 83935; 84100; 84145; 84300; 84443; 84484; 84540; 85007; 85018; 85025; 85379; 85651; 87040; 87081; 87088; 93005; 93017; 93308; 94640; 94760; 96372; 97110; 97116; 97161; 97530; 99291; A6213; A9500; A9539; A9540; G0378; J0456; J0696; J1650; J1815; J1938; J2405; J2543; J2785; J3373; J7040; J7120; J7121

== ENCOUNTER 2025-06-13 10:37 | Outpatient (CLI) | payer MEDICARE ==
[~2025-06-13 10:37] MED LIST: BACILLUS COAGULANS PO; FISH1CAP15 PO; INSU100C10 SQ; LANTUS SUBCUT; SUPPORT PO; VITA-321 PO; [UNRECOGNIZED DRUG - CODE] PO; [UNRECOGNIZED DRUG - OTHER] PO; [UNRECOGNIZED DRUG - OTHER] PO; [UNRECOGNIZED DRUG - OTHER] PO; [UNRECOGNIZED DRUG - OTHER] PO; [UNRECOGNIZED DRUG - OTHER] PO; [UNRECOGNIZED DRUG - OTHER] PO; [UNRECOGNIZED DRUG - OTHER] PO; [UNRECOGNIZED DRUG - SUPPLY] PO
[2025-06-13 11:26] VITALS: PULSE 66; RESP 15; O2SAT 96
--- NOTE | 2025-06-13 15:33 | PROCEDURE NOTE - Respiratory ---
Procedure Note-Respiratory Providers to Copies To 1: AJAY ZAPATA NP Procedure Name: This is a spirometry study dated June 13, 2025. Spirometry measurements: The forced vital capacity is mildly reduced at 1.93 L. The FEV1 is also mildly reduced at 1.49 L. the FEV1 ratio remains in the normal range. The flow rate measurements are normal with the exception of the FEF 25 75% which is reduced. Bronchodilator was not administered as part of the study. Conclusion: This study shows very mild abnormality. There is evidence for obstructive ventilatory defect although it appears to be quite mild. In addition there may be an element of mild restrictive lung disease. Continued use of bronchodilator therapy is recommended for this patient. We have no previous studies for comparison. NOLAN FISHMAN MD Jun 13, 2025 15:33
== END 2025-06-13 23:59 | disposition home or self-care (01) ==
LOC: RT 10:37
PROVIDERS: ATTEND Student in an Organized Health Care Education/Training Program
DX: I50.32 Chronic diastolic (congestive) heart failure (principal); R06.02 Shortness of breath
CPT/HCPCS: 94010; 94760